=== PATIENT | male | born 1955 | race Asian ===

== ENCOUNTER 2022-04-20 00:28 | Inpatient (IN) | payer MEDICARE, MEDICAID ==
[~2022-04-20] VITALS: Ht 157.5 cm; Wt 52.5 kg
[2022-04-20] VITALS (52 sets, daily range): BP systolic 81–132; BP diastolic 49–84
[2022-04-20] MEDS ORDERED: SODIUM CHLORIDE 0.9% 1,000 ML IV ONE (01:00)
[2022-04-20 01:33] LABS: HEMATOCRIT. 34.8 % (42.0-52.0); HEMOGLOBIN. 10.3 g/dL (14.0-18.0); MEAN CORPUSCULAR HEMOGLOBIN 24.7 pg (28.0-32.0); MEAN CORPUSCULAR VOLUME 83.8 fL (80.0-94.0); MEAN PLATELET VOLUME 7.3 fl (7.4-10.4); PLATELET 720 x1000/uL (130-400); RED BLOOD CELL COUNT 4.15 mill/uL (4.7-6.1)
[2022-04-20 01:41] LABS: CHLORIDE 102 mEq/L (98-107)
[2022-04-20 01:49] LABS: INR 1.2; PROTHROMBIN TIME 12.7 sec (9.6-11.0)
[2022-04-20] MEDS ORDERED: PIPERACILLIN/TAZOBACTAM 3.375GM/50ML PREMIX IV STA (02:51)
[2022-04-20 02:58] LABS: PLATELET ESTIMATE MARKEDLY INCREASED
[2022-04-20] MEDS ORDERED: ASPIRIN 325MG TABLET PO ONE (03:00)
[2022-04-20] MEDS ORDERED: VANCOMYCIN 1GM PMX (XELLIA) 200 ML IV SCH (03:00)
[2022-04-20] MEDS ORDERED: PIPERACILLIN/TAZ 3.375G PREMIX 50 ML IV NR (03:02)
[2022-04-20] MEDS ORDERED: VANCOMYCIN 1,000 MG in DEXT 5% WATER 250 ML IV NR (03:15)
[2022-04-20] MEDS ORDERED: ASPIRIN 325MG TABLET PO NR (03:15)
[2022-04-20] MEDS ORDERED: IOHEXOL-350 100 ML BOTTLE ONE (06:01)
[2022-04-20] MEDS ORDERED: NOREPINEPHRINE 8 MG in DEXT 5% WATER 242 ML IV STA (08:13)
[2022-04-20] MEDS ORDERED: SODIUM CHLORIDE 0.9% 500 ML IV ONE (08:15)
[2022-04-20] MEDS ORDERED: NOREPINEPHRINE 8 MG in DEXT 5% WATER 242 ML IV NR (09:00)
[2022-04-20] MEDS ORDERED: LIDOCAINE HCL 1% 30ML VIAL (10MG/ML) ONE (09:00)
[2022-04-20] MEDS: ENOXAPARIN 60MG/0.6ML SYR SUBCUT SCH ×2 (11:26→21:08)
[2022-04-20] MEDS ORDERED: ONDANSETRON HCL 4MG/2ML INJ IV PRN (11:45)
[2022-04-20] MEDS ORDERED: NALOXONE HCL 0.4MG/ML VIAL IV PRN (12:00)
[2022-04-20] MEDS ORDERED: MIRT-89 MT (12:14)
[2022-04-20] MEDS ORDERED: AMYL1CAP61 MT (12:14)
[2022-04-20] MEDS ORDERED: HYDR-4001 MT (12:14)
[2022-04-20] MEDS ORDERED: DOCU250C69 MT (12:14)
[2022-04-20] MEDS ORDERED: MORP30CP13 PO (12:14)
[2022-04-20] MEDS ORDERED: MELA10TA3 MT (12:14)
[2022-04-20] MEDS ORDERED: MORPHINE SULFATE 30MG TABLET SR PO SCH (13:00)
[2022-04-20] MEDS ORDERED: NOREPINEPHRINE 32 MG in DEXT 5% WATER 218 ML IV PRN (15:00)
[2022-04-20] MEDS: PIPERACILLIN/TAZOBACTAM 3.375 G in DEXTROSE 5% WATER 50 ML IV SCH ×2 (15:04→21:09)
[2022-04-20] MEDS: MORPHINE SULFATE 15MG TABLET SR PO SCH ×2 (15:05→21:09)
[2022-04-20 18:52] LABS: CLARITY URINE CLEAR (CLEAR); COLOR URINE DARK YELLOW (YELLOW); KETONES URINE 2+ (NEGATIVE); LEUKOCYTE ESTERASE URINE TRACE (NEGATIVE); NITRITE URINE POSITIVE (NEGATIVE); OCCULT BLOOD URINE 2+ (NEGATIVE); PH URINE 5.5 (4.5-8.0); PROTEIN URINE 1+ (NEGATIVE); SPECIFIC GRAVITY URINE 1.082 (1.005-1.030)
[2022-04-20] MEDS: HYDROCODONE/ACETAMINOPHEN 5/325MG TABLET PO PRN (19:59)
[2022-04-21] VITALS (73 sets, daily range): BP systolic 76–123; BP diastolic 33–79
[2022-04-21] MEDS: PIPERACILLIN/TAZOBACTAM 3.375 G in DEXTROSE 5% WATER 50 ML IV SCH (05:48)
[2022-04-21 08:16] LABS: HEMATOCRIT. 29.4 % (42.0-52.0); HEMOGLOBIN. 8.9 g/dL (14.0-18.0); MEAN CORPUSCULAR HEMOGLOBIN 25.2 pg (28.0-32.0); MEAN CORPUSCULAR VOLUME 83.1 fL (80.0-94.0); MEAN PLATELET VOLUME 7.3 fl (7.4-10.4); PLATELET 637 x1000/uL (130-400); RED BLOOD CELL COUNT 3.54 mill/uL (4.7-6.1); RED CELL DISTRIBUTION WIDTH 22.1 % (11.6-14.6)
[2022-04-21 08:24] LABS: CHLORIDE 106 mEq/L (98-107)
[2022-04-21 08:32] LABS: PHOSPHORUS 2.8 mg/dL (2.5-4.9)
[2022-04-21] MEDS ORDERED: DOCUSATE SODIUM 100MG CAPSULE PO PRN (08:45)
[2022-04-21] MEDS ORDERED: LACTULOSE 20G/30ML UDC PO PRN (08:45)
[2022-04-21] MEDS: MORPHINE SULFATE 15MG TABLET SR PO SCH ×2 (08:58→22:05)
[2022-04-21] MEDS: ENOXAPARIN 60MG/0.6ML SYR SUBCUT SCH ×2 (09:00→22:04)
[2022-04-21] MEDS: MIDODRINE HCL 5MG TABLET PO SCH ×3 (11:02→17:41)
[2022-04-21 11:06] LABS: PLATELET ESTIMATE INCREASED
[2022-04-21] MEDS ORDERED: SODIUM CHLORIDE 0.9% 1,000 ML IV ONE ×2 (13:00→19:00)
[2022-04-22] VITALS (44 sets, daily range): BP systolic 80–126; BP diastolic 19–72
[2022-04-22 05:56] LABS: HEMATOCRIT. 25.8 % (42.0-52.0); HEMOGLOBIN. 7.9 g/dL (14.0-18.0); MEAN CORPUSCULAR HEMOGLOBIN 25.5 pg (28.0-32.0); MEAN CORPUSCULAR VOLUME 83.3 fL (80.0-94.0); MEAN PLATELET VOLUME 7.5 fl (7.4-10.4); PLATELET 566 x1000/uL (130-400); RED BLOOD CELL COUNT 3.09 mill/uL (4.7-6.1); RED CELL DISTRIBUTION WIDTH 21.7 % (11.6-14.6)
[2022-04-22 06:10] LABS: CHLORIDE 110 mEq/L (98-107)
[2022-04-22 06:14] LABS: PHOSPHORUS 2.2 mg/dL (2.5-4.9)
[2022-04-22] MEDS: MULTIVITAMINS,THER W-MINERALS TABLET PO SCH (08:48)
[2022-04-22] MEDS: MIDODRINE HCL 5MG TABLET PO SCH ×3 (08:48→17:35)
[2022-04-22] MEDS: MORPHINE SULFATE 15MG TABLET SR PO SCH ×2 (08:48→21:59)
[2022-04-22] MEDS: ENOXAPARIN 60MG/0.6ML SYR SUBCUT SCH ×2 (08:49→21:58)
[2022-04-22] MEDS: CALCIUM CARBONATE 500MG TABLET CHEW PO SCH ×3 (08:49→17:35)
[2022-04-22] MEDS ORDERED: POTASSIUM PHOS,M-BASIC-D-BASIC 15 MMOL in DEXT 5% WATER 245 ML IV SCH (10:00)
[2022-04-22 13:38] LABS: PLATELET ESTIMATE INCREASED
[2022-04-23] VITALS (32 sets, daily range): BP systolic 79–131; BP diastolic 48–78
[2022-04-23 05:49] LABS: MEAN CORPUSCULAR HEMOGLOBIN 25.6 pg (28.0-32.0); MEAN CORPUSCULAR VOLUME 82.8 fL (80.0-94.0); PLATELET 602 x1000/uL (130-400); RED BLOOD CELL COUNT 3.14 mill/uL (4.7-6.1); RED CELL DISTRIBUTION WIDTH 21.7 % (11.6-14.6)
[2022-04-23 05:54] LABS: CHLORIDE 107 mEq/L (98-107)
[2022-04-23 06:04] LABS: PHOSPHORUS 2.5 mg/dL (2.5-4.9); TOTAL IRON BINDING CAPACITY 150 ug/dL (250-450)
[2022-04-23 07:35] LABS: VITAMIN B12 SERUM > 2000.0 pg/mL (211-911)
[2022-04-23] MEDS: CALCIUM CARBONATE 500MG TABLET CHEW PO SCH ×3 (09:23→17:55)
[2022-04-23] MEDS: MULTIVITAMINS,THER W-MINERALS TABLET PO SCH (09:23)
[2022-04-23] MEDS: MORPHINE SULFATE 15MG TABLET SR PO SCH ×2 (09:23→20:47)
[2022-04-23] MEDS: ENOXAPARIN 60MG/0.6ML SYR SUBCUT SCH ×2 (09:24→20:46)
[2022-04-23] MEDS: MIDODRINE HCL 5MG TABLET PO SCH ×3 (09:24→17:55)
[2022-04-23 14:27] LABS: BG BASE EXCESS 0.6 mmol/L (-2.0-2.0); BG CARBOXYHEMOGLOBIN 0.7 % (0.5-1.5); BG HCO3 ACT 23.5 mmol/L (22.0-26.0); BG METHEMOGLOBIN 0.3 % (0.0-1.5); BG OXYGEN SATURATION 86.9 % (92.0-98.5); BG PCO2 31.3 mmHg (35.0-45.0); BG PH 7.493 (7.350-7.450); BG PO2 49.9 mmHg (75.0-100.0); BG SAMPLE SITE LEFT BRACHIAL; BG TOTAL HEMOGLOBIN 9.8 g/dL (12.0-18.0); BG VENT MODE ROOM AIR
[2022-04-23 16:44] LABS: FERRITIN 1015 ng/mL (22-322)
[2022-04-24] VITALS (30 sets, daily range): BP systolic 96–142; BP diastolic 48–80
[2022-04-24 05:09] LABS: HEMOGLOBIN. 8.2 g/dL (14.0-18.0); MEAN CORPUSCULAR HEMOGLOBIN 25.8 pg (28.0-32.0); MEAN CORPUSCULAR VOLUME 82.1 fL (80.0-94.0); PLATELET 713 x1000/uL (130-400); RED BLOOD CELL COUNT 3.16 mill/uL (4.7-6.1); RED CELL DISTRIBUTION WIDTH 21.4 % (11.6-14.6)
[2022-04-24 05:19] LABS: CHLORIDE 104 mEq/L (98-107)
[2022-04-24] MEDS: HYDROCODONE/ACETAMINOPHEN 5/325MG TABLET PO PRN (07:46)
[2022-04-24] MEDS: MORPHINE SULFATE 15MG TABLET SR PO SCH (09:09)
[2022-04-24] MEDS: CALCIUM CARBONATE 500MG TABLET CHEW PO SCH ×3 (09:09→18:47)
[2022-04-24] MEDS: MULTIVITAMINS,THER W-MINERALS TABLET PO SCH (09:09)
[2022-04-24] MEDS: ENOXAPARIN 60MG/0.6ML SYR SUBCUT SCH (09:10)
[2022-04-24] MEDS: MIDODRINE HCL 5MG TABLET PO SCH ×3 (09:11→17:54)
[2022-04-24 10:39] LABS: PLATELET ESTIMATE INCREASED
[2022-04-24] MEDS ORDERED: ALBU18HF2 IH (13:20)
[2022-04-24] MEDS ORDERED: APIX5TAB MT (13:20)
[2022-04-24] MEDS ORDERED: FLUT1DIS3 INH (13:20)
== END 2022-04-24 19:50 | disposition home or self-care (01) | DRG 720 ==
LOC: ER 00:47 → CVICU 08:23 → EDBEDREQSVC 08:25 → EDBEDREQTM 08:25 → ENRESERV 09:46
PROVIDERS: ADMIT Internal Medicine; ATTEND Internal Medicine
PROC: 02HV33Z Insertion of Infusion Device into Superior Vena Cava, Percutaneous Approach (ICD-10-PCS; principal; 2022-04-20)
PROC: B548ZZA Ultrasonography of Superior Vena Cava, Guidance (ICD-10-PCS; 2022-04-20)
DX: A41.9 Sepsis, unspecified organism (principal); J96.01 Acute respiratory failure with hypoxia; I26.99 Other pulmonary embolism without acute cor pulmonale; R65.21 Severe sepsis with septic shock; J18.9 Pneumonia, unspecified organism; E43 Unspecified severe protein-calorie malnutrition; E87.20 Acidosis, unspecified; C25.9 Malignant neoplasm of pancreas, unspecified; C78.89 Secondary malignant neoplasm of other digestive organs; C78.7 Secondary malignant neoplasm of liver and intrahepatic bile duct; D64.9 Anemia, unspecified; C78.00 Secondary malignant neoplasm of unspecified lung; I27.81 Cor pulmonale (chronic); Z20.822 Contact with and (suspected) exposure to COVID-19; Z68.21 Body mass index [BMI] 21.0-21.9, adult; Z95.828 Presence of other vascular implants and grafts
CPT/HCPCS: 36415; 36573; 36600; 71045; 71275; 74177; 80048; 80053; 81003; 82375; 82607; 82728; 82746; 82805; 83540; 83550; 83605; 83735; 83880; 84100; 84145; 84484; 85025; 85027; 87426; 92610; 93005; 93306; 93970; 99291; C1725; C9803; J1650; J2543; J3370; J3490; J7030; J7040; J7060; Q9967; A4315